=== PATIENT | female | born 1975 | race Caucasian/White ===

== ENCOUNTER 2019-12-24 08:58 | Emergency (ER) | payer BC, OTHER ==
[~2019-12-24] VITALS: Ht 167.6 cm; Wt 90.9 kg
[2019-12-24 09:03] VITALS: BP 131/81
[2019-12-24] MEDS ORDERED: ACET-1059 PO (09:26)
== END 2019-12-24 09:48 | disposition home or self-care (01) ==
LOC: ER 08:58
DX: R50.9 Fever, unspecified (principal); M79.10 Myalgia, unspecified site; R51 Headache; M06.9 Rheumatoid arthritis, unspecified; Z20.828 Contact with and (suspected) exposure to other viral communicable diseases; Z98.51 Tubal ligation status; Z88.8 Allergy status to other drugs, medicaments and biological substances; Z79.899 Other long term (current) drug therapy
CPT/HCPCS: 36415; 99283; U0003

== ENCOUNTER 2019-12-30 08:29 | Emergency (ER) | payer BC ==
[~2019-12-30] VITALS: Ht 167.6 cm; Wt 89.0 kg
[~2019-12-30 08:29] MED LIST: ACET-1059 PO
[2019-12-30 08:37] VITALS: BP 128/83
== END 2019-12-30 11:28 | disposition home or self-care (01) ==
LOC: ER 08:29
DX: R50.9 Fever, unspecified (principal); R11.0 Nausea; R51 Headache; Z98.51 Tubal ligation status; Z88.6 Allergy status to analgesic agent
CPT/HCPCS: 99281